=== PATIENT | female | born 1990 | race Caucasian/White ===

== ENCOUNTER 2021-04-07 16:04 | Outpatient (CLI) | payer OTHER ==
[2021-04-07 16:16] LABS: BILIRUBIN,URINE NEGATIVE (NEGATIVE); GLUCOSE, URINE (UA) NEGATIVE (NEGATIVE); KETONES,URINE (UA) NEGATIVE (NEGATIVE); LEUKOCYTE ESTERASE, URINE TRACE (NEGATIVE); NITRITE,URINE NEGATIVE (NEGATIVE); OCCULT BLOOD,URINE NEGATIVE (NEGATIVE); PH,URINE 6.5 PH (5.0-7.5); PROTEIN,URINE NEGATIVE (NEGATIVE); UROBILINOGEN,URINE 0.2 (NORMAL) E.U./dL (NORMAL)
[2021-04-07 17:11] LABS: CLARITY,URINE HAZY (CLEAR)
[2021-04-07 17:54] LABS: BACTERIA,URINE Few /HPF (None Seen); RBC,URINE 0-5 /HPF (0-5); SQUAMOUS EPITHELIAL CELL,UR FEW Squamous (<= Few); WBC,URINE 0-3 /HPF (0-5)
== END 2021-04-07 16:05 | disposition home or self-care (01) ==
LOC: LAB 16:04
PROVIDERS: ATTEND Nurse Practitioner Obstetrics & Gynecology
DX: Z34.80 Encounter for supervision of other normal pregnancy, unspecified trimester (principal); Z36.89 Encounter for other specified antenatal screening
CPT/HCPCS: 81001; 87086

== ENCOUNTER 2021-04-12 10:24 | Outpatient (CLI) | payer OTHER ==
[2021-04-12 10:50] LABS: BASOPHILS % (AUTO) 0.4 %; EOSINOPHILS % (AUTO) 0.3 %; HCT - HEMATOCRIT 34.8 % (37.0-47.0); HGB - HEMOGLOBIN 11.8 g/dL (12.0-16.0); LYMPHOCYTES # (AUTO) 1.7 10^3/uL (1.5-3.5); LYMPHOCYTES % (AUTO) 24.7 %; MEAN CORPUSCULAR HEMOGLOBIN 29.1 pg (27.0-31.0); MEAN CORPUSCULAR HGB CONC 33.9 g/dL (32.0-36.0); MEAN CORPUSCULAR VOLUME 85.9 fL (81.0-99.0); MEAN PLATELET VOLUME 8.9 fL (7.9-10.8); MONOCYTES # (AUTO) 0.5 10^3/uL (0.0-1.0); MONOCYTES % (AUTO) 7.1 %; NEUTROPHILS # (AUTO) 4.7 10^3/uL (1.5-6.6); NEUTROPHILS % (AUTO) 67.4 %; PLT - PLATELET COUNT 293 10^3/uL (130-450); RED BLOOD COUNT 4.05 10^6/uL (4.20-5.40); RED CELL DISTRIBUTION WIDTH 12.4 % (12.0-15.0); WHITE BLOOD COUNT 6.9 x10^3/uL (4.8-10.8)
[2021-04-13 11:02] LABS: HEPATITIS C ANTIBODY NON-REACTIVE (NON-REACTIVE)
[2021-04-13 11:07] LABS: HEPATITIS B SURFACE ANTIGEN NON-REACTIVE (NON-REACTIVE)
[2021-04-13 11:51] LABS: HIV AG/AB 4TH GEN NON-REACTIVE (NON-REACTIVE)
== END 2021-04-12 10:25 | disposition home or self-care (01) ==
LOC: LAB 10:24
PROVIDERS: ATTEND Nurse Practitioner Obstetrics & Gynecology
DX: Z34.80 Encounter for supervision of other normal pregnancy, unspecified trimester (principal); Z36.89 Encounter for other specified antenatal screening
CPT/HCPCS: 36415; 82306; 85025; 86592; 86762; 86787; 86803; 86850; 86900; 86901; 87340; 87389

== ENCOUNTER 2021-04-13 09:59 | Outpatient (CLI) | payer OTHER ==
[2021-04-13 10:21] LABS: BILIRUBIN,URINE NEGATIVE (NEGATIVE); GLUCOSE, URINE (UA) NEGATIVE (NEGATIVE); KETONES,URINE (UA) NEGATIVE (NEGATIVE); LEUKOCYTE ESTERASE, URINE TRACE (NEGATIVE); NITRITE,URINE NEGATIVE (NEGATIVE); OCCULT BLOOD,URINE NEGATIVE (NEGATIVE); PH,URINE 6.5 PH (5.0-7.5); PROTEIN,URINE NEGATIVE (NEGATIVE); UROBILINOGEN,URINE 0.2 (NORMAL) E.U./dL (NORMAL)
[2021-04-13 10:23] LABS: CLARITY,URINE CLEAR (CLEAR)
[2021-04-13 10:56] LABS: BACTERIA,URINE Few /HPF (None Seen); RBC,URINE 0-5 /HPF (0-5); SQUAMOUS EPITHELIAL CELL,UR FEW Squamous (<= Few); WBC,URINE 0-3 /HPF (0-5)
[2021-04-13 20:42] LABS: BACTERIAL VAGINOSIS DNA NEGATIVE (NEGATIVE); CANDIDA GLABRATA DNA NEGATIVE (NEGATIVE); CANDIDA GROUP DNA POSITIVE (NEGATIVE); CANDIDA KRUSEI DNA NEGATIVE (NEGATIVE); TRICHOMONAS VAGINALIS DNA NEGATIVE (NEGATIVE)
== END 2021-04-13 10:00 | disposition home or self-care (01) ==
LOC: LAB.R 09:59
PROVIDERS: ATTEND Nurse Practitioner Obstetrics & Gynecology
DX: R82.998 Other abnormal findings in urine (principal)
CPT/HCPCS: 81001; 87086; 87661; 87801

== ENCOUNTER 2021-04-24 09:26 | Outpatient (CLI) | payer OTHER ==
--- NOTE | 2021-04-24 10:28 | Ultrasound Report ---
PROCEDURE: OB First Trimester INDICATIONS: POSITIVE TEST, DATING OUTSIDE/PRIOR DATING DATA: Last menstrual period (LMP): 02/12/2021. LMP-based estimated date of delivery (DORIS): 11/19/2021. First dating scan (date and location): 04/24/2021. Estimated date of delivery (DORIS) from first dating scan: 11/22/2021. The below data below was generated using the ultrasound derived DORIS of 11/22/2021 TECHNIQUE: Real-time scanning was performed of the fetus and maternal pelvic organs, with image documentation. COMPARISON: None. FINDINGS: Embryo: Gestational sac in the uterine fundus measuring approximately 4.2 cm, corresponding to a ges tational age of 9 weeks 5 days. Within the gestational sac there is a fetus measuring 2.8 cm, corresp onding to gestational age of 9 weeks 5 days. Yolk sac noted. heart rate detected at 176 bpm. Measurement variability in dating: +/- 4 weeks by LMP, +/- 7 days by mean sac diameter (use before 6 weeks gestation if crown-rump length not able to be measured), +/- 5 days by crown-rump length (6-12 weeks gestation). Maternal organs: Ovaries both normal in appearance. IMPRESSION: Single live intrauterine gestation with ultrasound estimated gestational age of 9 weeks 5 days. Reviewed by: Bairon Villanueva MD on 04/24/2021 10:26 AM PST Approved by: Bairon Villanueva MD on 04/24/2021 10:26 AM PST Station ID: [id number]
== END 2021-04-24 09:27 | disposition home or self-care (01) ==
LOC: DI 09:26
PROVIDERS: ATTEND Nurse Practitioner Obstetrics & Gynecology
DX: Z34.81 Encounter for supervision of other normal pregnancy, first trimester (principal); Z3A.09 9 weeks gestation of pregnancy

== ENCOUNTER 2021-05-10 08:00 | Outpatient (CLI) | payer OTHER ==
[2021-05-10 23:59] LABS: CHLAMYDIA TRACHOMATIS DNA NEGATIVE (NEGATIVE); NEISSERIA GONORRHOEAE DNA NEGATIVE (NEGATIVE); TRICHOMONAS VAGINALIS DNA NEGATIVE (NEGATIVE)
== END 2021-05-10 23:59 | disposition home or self-care (01) ==
LOC: LAB.WC 08:00
PROVIDERS: ATTEND Nurse Practitioner Obstetrics & Gynecology
DX: Z11.3 Encounter for screening for infections with a predominantly sexual mode of transmission (principal)
CPT/HCPCS: 87491; 87591; 87661

== ENCOUNTER 2021-05-12 09:20 | Outpatient (CLI) | payer OTHER ==
[2021-05-12 13:21] LABS: ESTIMATED AVERAGE GLUCOSE 97 mg/dL (70-100)
== END 2021-05-12 09:21 | disposition home or self-care (01) ==
LOC: LAB 09:20
PROVIDERS: ATTEND Nurse Practitioner Obstetrics & Gynecology
DX: Z34.80 Encounter for supervision of other normal pregnancy, unspecified trimester (principal); Z36.89 Encounter for other specified antenatal screening
CPT/HCPCS: 36415; 82950; 83036

== ENCOUNTER 2021-05-19 09:34 | Outpatient (CLI) | payer OTHER ==
[2021-05-23 12:16] LABS: CIGARETTE SMOKER? NOT GIVEN; DONOR AGE: EGG RETRIEVAL NOT GIVEN; DONOR EGG NOT GIVEN; HX OF NEURAL TUBE DEFECTS NOT GIVEN; INSULIN DEPEND DIABETIC N; MATERNAL WEIGHT 217 lbs; NUMBER OF FETUSES 1; PREV PREGNANCY DOWN SYND NOT GIVEN
== END 2021-05-19 09:35 | disposition home or self-care (01) ==
LOC: LAB.N 09:34
PROVIDERS: ATTEND Nurse Practitioner Obstetrics & Gynecology
DX: Z36.8A Encounter for antenatal screening for other genetic defects (principal)
CPT/HCPCS: 87491; 87591; 87661

== ENCOUNTER 2021-06-04 09:17 | Outpatient (CLI) | payer OTHER | END 2021-06-04 09:18 | disposition home or self-care (01) | LOC: RT 09:17 | PROVIDERS: ATTEND Family Medicine | DX: R06.00 Dyspnea, unspecified (principal); Z86.16 Personal history of COVID-19 | CPT/HCPCS: 94010 ==

== ENCOUNTER 2021-06-09 10:41 | Outpatient (CLI) | payer OTHER ==
[2021-06-09 19:10] LABS: THYROID STIMULATING HORMONE 1.25 uIU/mL (0.34-5.60)
[2021-06-09 19:16] LABS: FERRITIN 22.2 ng/mL (11.0-306.8)
[2021-06-09 19:20] LABS: % IRON SATURATION 17 % (20-50); IRON 79 ug/dL (28-170); TOTAL IRON BINDING CAPACITY 469 ug/dL (250-450); TRANSFERRIN 335 mg/dL (192-382)
== END 2021-06-09 10:42 | disposition home or self-care (01) ==
LOC: LAB.N 10:41
PROVIDERS: ATTEND Obstetrics & Gynecology
DX: O99.019 Anemia complicating pregnancy, unspecified trimester (principal); O99.891 Other specified diseases and conditions complicating pregnancy; R68.89 Other general symptoms and signs
CPT/HCPCS: 36415; 82105; 82677; 82728; 83540; 84163; 84443; 84466; 84702; 86336

== ENCOUNTER 2021-07-03 09:18 | Outpatient (CLI) | payer OTHER ==
--- NOTE | 2021-07-03 13:21 | Ultrasound Report ---
PROCEDURE: OB Detailed Eval INDICATIONS: SUPERVISION OF OUTSIDE/PRIOR DATING DATA: Last menstrual period (LMP): February 12, 2021. LMP-based estimated date of delivery (DORIS): November 19, 2021. First dating scan (date ): April 24, 2021. Estimated date of delivery (DORIS) from first dating scan: November 22, 2021. TECHNIQUE: Real-time scanning was performed of the fetus, with image documentation and biometric measurements. COMPARISON: April 24, 2021 FINDINGS: General: A single living intrauterine gestation is present. Presentation: Vertex Placenta: Placental position is anterior, without previa. Amniotic fluid index: 12.3 cm, appropriate for gestational age. heart rate: 138 beats per minute. Maternal cervical canal: 4.6 cm long; normal length is 2.5 cm or more. biometrics: Biparietal diameter: 4.35 cm Head circumference: 17.1 cm Abdominal circumference: 14.5 cm Femur length: 3.1 cm Estimated gestational age from initial scan: 19 weeks, 5 days. Composite gestational age from present scan: 19 weeks, 4 days Estimated weight and percentile: 307.3 g +/- 45 g; 44 percentile Measurement variability in biometric dating: +/- 10 days from 12-20 weeks gestation, +/- 2 weeks from 20-30 weeks gestation, +/- 3 weeks at 30 weeks gestation or later. Anatomic survey: Neuro: Ventricles are normal at less than 10 mm. Cisterna magna is normal at 3-11 mm. Cerebellum i s normal in size and morphology. Nuchal skin fold: Normal at less than 6 mm between 14 and 20 weeks gestational age. Face: Not well seen. Spine: Not well seen. Heart: 4-chambered heart is present, with normal ventricular outflow tracts. Diaphragm: Diaphragm is intact. Stomach: Left-sided stomach is present. Kidneys: No hydronephrosis. Normal is less than 5 mm in 2nd trimester, less than 7 mm in 3rd trimester. Cord: 3 vessel cord has orthotopic insertion. Bladder: Normal in size. Extremities: All 4 extremities are visualized. IMPRESSION: 1. Live single intrauterine gestation as detailed above. Reviewed by: Huang Olmos MD on 07/03/2021 1:20 PM PDT Approved by: Huang Olmos MD on 07/03/2021 1:20 PM PDT Station ID: [id number]
== END 2021-07-03 09:19 | disposition home or self-care (01) ==
LOC: DI 09:18
PROVIDERS: ATTEND Obstetrics & Gynecology
DX: Z34.82 Encounter for supervision of other normal pregnancy, second trimester (principal); Z36.89 Encounter for other specified antenatal screening

== ENCOUNTER 2021-08-15 11:01 | Outpatient (CLI) | payer OTHER ==
--- NOTE | 2021-08-15 17:13 | Ultrasound Report ---
PROCEDURE: OB F/U or Repeat INDICATIONS: UTERINE SIZE DATE DISCREPANCY OUTSIDE/PRIOR DATING DATA: Last menstrual period (LMP): 02/12/2021. LMP-based estimated date of delivery (DORIS): 11/19/2021. First dating scan (date and location): 04/24/2021. Estimated date of delivery (DORIS) from first dating scan: 11/22/2021. The below data below was generated using the ultrasound DORIS of 3122 TECHNIQUE: Real-time scanning was performed of the fetus, with image documentation and biometric measurements. COMPARISON: OB ultrasound 04/24/2021, 07/03/2021 FINDINGS: General: A single living intrauterine gestation is present. Presentation: Free Placenta: Placental position is anterior, without previa. Amniotic fluid index: 15 cm, within normal limits for gestational age. Largest pocket 5.5 cm heart rate: 152 beats per minute. Maternal cervical canal: 4.3 cm long; normal length is 2.5 cm or more. biometrics: Biparietal diameter: 6.6 cm x 6 weeks 4 days Head circumference: 24.5 cm 26 weeks 4 days Abdominal circumference: 21.8 cm 26 weeks 2 days Femur length: 4.4 cm 24 weeks 3 days Estimated gestational age from initial scan: 25 weeks 6 days Composite gestational age from present scan: 26 weeks 0 days Estimated weight and percentile: 838 g 31st percentile Measurement variability in biometric dating: +/- 10 days from 12-20 weeks gestation, +/- 2 weeks from 20-30 weeks gestation, +/- 3 weeks at 30 weeks gestation or more. Other: Face, profile and spine are within normal limits. IMPRESSION: 1. Single live intrauterine with ultrasound gestational age today of 26 weeks 0 days. 2. Face, profile and spine are within normal limits. Reviewed by: April Benjamin MD on 08/15/2021 5:12 PM PDT Approved by: April Benjamin MD on 08/15/2021 5:12 PM PDT Station ID: [id number]
== END 2021-08-15 11:02 | disposition home or self-care (01) ==
LOC: DI 11:01
PROVIDERS: ATTEND Obstetrics & Gynecology
DX: O26.842 Uterine size-date discrepancy, second trimester (principal); Z3A.26 26 weeks gestation of pregnancy

== ENCOUNTER 2021-09-12 08:32 | Outpatient (CLI) | payer OTHER ==
[2021-09-12 09:10] LABS: GTT GLUCOSE,FASTING 97 mg/dL (70-100)
== END 2021-09-12 08:33 | disposition home or self-care (01) ==
LOC: LAB 08:32
PROVIDERS: ATTEND Obstetrics & Gynecology
DX: R73.02 Impaired glucose tolerance (oral) (principal)
CPT/HCPCS: 36415; 82951; 82952

== ENCOUNTER 2021-10-02 15:30 | Outpatient (CLI) | payer OTHER ==
--- NOTE | 2021-10-03 15:18 | Ultrasound Report ---
PROCEDURE: OB F/U or Repeat INDICATIONS: Uterine size date discrepancy OUTSIDE/PRIOR DATING DATA: Last menstrual period (LMP): 02/12/2021. LMP-based estimated date of delivery (DORIS): 11/19/2021. First dating scan (date and location): 04/24/2021. Estimated date of delivery (DORIS) from first dating scan: 11/22/2021. The below data below was generated using the ultrasound DORIS of 11/22/2021 TECHNIQUE: Real-time scanning was performed of the fetus, with image documentation and biometric measurements. Endovaginal scanning: Not performed COMPARISON: 08/15/2021 FINDINGS: General: A single living intrauterine gestation is present. Presentation: Vertex Placenta: Placental position is anterior without previa. Amniotic fluid index: 16.2 cm, normal for gestational age. Largest pocket: 6.2 cm. heart rate: 140 beats per minute. Maternal cervical canal: 5.7 cm long; normal length is 2.5 cm or more. biometrics: Biparietal diameter: 8.4 cm Head circumference: 32.2 cm Abdominal circumference: 30.2 cm Femur length: 6.1 cm Estimated gestational age from initial scan: 32 weeks 5 days. Composite gestational age from present scan: 34 weeks 1 day. Estimated weight and percentile: 2257 g, 72nd percentile Measurement variability in biometric dating: +/- 10 days from 12-20 weeks gestation, +/- 2 weeks from 20-30 weeks gestation, +/- 3 weeks at 30 weeks gestation or more. Other: Not applicable. IMPRESSION: Single living intrauterine gestation with normal AWILDA and normal weight. Estimated gestational age on the basis of biometry is 34 weeks 1 day. Reviewed by: Bairon Villanueva MD on 10/03/2021 3:17 PM PDT Approved by: Bairon Villanueva MD on 10/03/2021 3:17 PM PDT Station ID: [id number]
== END 2021-10-02 15:31 | disposition home or self-care (01) ==
LOC: DI 15:30
PROVIDERS: ATTEND Nurse Practitioner
DX: O26.843 Uterine size-date discrepancy, third trimester (principal); Z3A.34 34 weeks gestation of pregnancy

== ENCOUNTER 2021-10-25 08:00 | Outpatient (CLI) | payer OTHER | END 2021-10-25 23:59 | disposition home or self-care (01) | LOC: LAB.N 08:00 | PROVIDERS: ATTEND Obstetrics & Gynecology | DX: Z36.85 Encounter for antenatal screening for Streptococcus B (principal) | CPT/HCPCS: 87797 ==

== ENCOUNTER 2021-11-16 07:41 | Inpatient (IN) | payer OTHER ==
--- NOTE | 2021-11-16 08:52 | HISTORY & PHYSICAL EXAMINATION ---
Admit History - : 4 Parity: 3 Care: positive: [facility] Complications This : positive: Gestational diabetes Smoking Status: Never smoker - Mother's Labs Mother's Blood Type: positive: O Mother's RH: positive: Positive GBS: positive: Group B Step Negative Rubella Status: positive: Equivocal - Other Maternal History Other Maternal History: HPI: 31-year-old -0-0-3 at 39 weeks 4 days gestation presenting for induction of labor. She has good movement. Denies loss of fluid. No LYNN/BV or RUQP. No vaginal bleeding. Denies nausea and vomiting. Denies urinary urgency or dysuria. All other symptoms reviewed and were negative except per HPI. Course A1 GDM: Can continue to monitor at this time. EFW 8/12 Cephalic presentation, normal AWILDA, 15, 3109 g, 53rd percentile COVID in : Resolved. No residual symptoms. 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 Going to pelvic floor PT, but less beneficial. Sense of prolapse: Said it happened later in last time. Declined exam. Discussed that prolapse often worsens with increase in age, , vaginal deliveries, all that increased since last . Encouraged to bring up at pelvic floor PT. Congenital eye issues (coloboma): declines MFM referral LMP 02/12/2021 DORIS by LMP 11/19/2021 Initial U/S @ 9.5wks c/w LMP dating. (DORIS by U/S 11/22/2021) FINAL DORIS 11/22/2021 04/07/2021 @ 7w5d- 219.4lbs BMI 37.8 O pos/Rubella- equivocal VZV:immune Genetic testing: Serum integrated screen part 1 completed -Part II - Negative FAS- 307.3g 44%ile, 3VC, placenta anterior w/o previa, AWILDA wnl EFW 5 24,022: 838 g, 31st percentile. AWILDA 15 cm. Glucola: Early glucose 104 , 1HR glucola 153, 3HR fast 97, 1hr 173, 2hr 164, 3hr 72 GDM Influenza: declines COVID-19 vaccine: declines; Had Covid 03/2021. TDAP- given 08/29/21 GBS @ 36.3- Negative HSV: denies in self and partner Breast pump Rx given 08/16/21 MOD: Anticipate ; Plan for 39 week induction.IOL 11/16/21 0730. pp contraception: Partner vasectomy, POP at 6 weeks until partner vasectomy pap:per pt 2019-Normal PMH Urinary incontinence mixed Congenital coloboma PSH Unremarkable OB History -0-0-3 1. 09/10/2008, 41 weeks, , female, 8 pounds 8 ounces 2. 12/16/2014, 40 weeks, male, 10 pounds 3 ounces 3. 03/14/2017, 39 weeks, , male, 10 pounds 11 ounces SH Denies tobacco, alcohol, drug Family History 's Father: Diabetes, coronary disease, [place] Mother: Psychiatric disease Paternal grandmother: Diabetes, stroke Paternal grandfather: Diabetes Maternal grandmother: Psychiatric care Maternal grandfather: Psychiatric care Allergies No known drug allergies Medications vitamins Physical exam: General: Alert, oriented, no acute distress Head: Normal cephalic atraumatic Eyes: PERRLA, extraocular motions intact. Respiratory: Normal rate of respiration. No accessory muscle use, normal respiratory effort. Cardiovascular: Regular rate and rhythm Abdomen: Gravid, nontender, nondistended Extremities: Normal range of motion Neuro: Oriented x3. Normal movements Psych: Appropriate mood and affect. Normal judgment and insight SVE: 05/14/-3 FHT: 150 beats per baseline, moderate variability, accelerations present, no decelerations. Octavia: Rare Plan 31-year-old -0-0-3 at 39 weeks 4 days gestation admitted for induction of labor secondary to gestational diabetes 1. Induction of labor -We will start with oxytocin for labor induction -Anticipate AROM 2. 39 weeks gestation 3. A1 gestational diabetes -Every 4 hour glucose checks. Meds/Allgy - Allergies Allergies/Adverse Reactions: Allergies Allergy/AdvReac Type Severity Reaction Status Date / Time No Known Drug Allergies Allergy Verified 09/19/21 10:58
[2021-11-16] MEDS ORDERED: fentaNYL 100 MCG/2 ML VIAL IVP PRN (09:09)
[2021-11-16] MEDS ORDERED: miSOPROStoL 200 MCG TABLET PR PRN (09:09)
[2021-11-16] MEDS ORDERED: NIFEdipine 10 MG CAPSULE PO PRN (09:09)
[2021-11-16] MEDS ORDERED: miSOPROStoL 200 MCG TABLET BC PRN (09:09)
[2021-11-16] MEDS ORDERED: OXYTOCIN 10 UNIT/ML VIAL IM PRN (09:09)
[2021-11-16] MEDS ORDERED: METHYLERGONOVINE 0.2 MG/ML VIAL IM PRN (09:09)
[2021-11-16] MEDS ORDERED: TERBUTALINE 1 MG/ML VIAL SUBQ PRN (09:09)
[2021-11-16] MEDS ORDERED: CARBOPROST TROMETHAMINE 250 MCG/ML AMP IM PRN (09:09)
[2021-11-16] MEDS ORDERED: TRANEXAMIC ACID IN NACL 1,000 MG/100 ML BAG IV PRN (09:09)
[2021-11-16] MEDS ORDERED: hydrALAZINE INJ 20 MG/ML VIAL IVP PRN ×2 (09:09)
[2021-11-16] MEDS ORDERED: lidocaine 1% 20 ML MDV ID PRN (09:09)
[2021-11-16] MEDS ORDERED: LABETALOL 20 MG/4 ML SYRINGE IVP PRN ×3 (09:09)
[2021-11-16] MEDS ORDERED: SODIUM CHLORIDE FLUSH 0.9% 10 ML SYRINGE IVP PRN (09:09)
[2021-11-16 09:15] LABS: BASOPHILS % (AUTO) 0.3 %; EOSINOPHILS % (AUTO) 0.5 %; HCT - HEMATOCRIT 35.9 % (37.0-47.0); HGB - HEMOGLOBIN 12.2 g/dL (12.0-16.0); LYMPHOCYTES # (AUTO) 1.4 10^3/uL (1.5-3.5); LYMPHOCYTES % (AUTO) 21.2 %; MEAN CORPUSCULAR VOLUME 88.4 fL (81.0-99.0); MONOCYTES # (AUTO) 0.7 10^3/uL (0.0-1.0); MONOCYTES % (AUTO) 9.8 %; NEUTROPHILS # (AUTO) 4.5 10^3/uL (1.5-6.6); NEUTROPHILS % (AUTO) 67.6 %; PLT - PLATELET COUNT 157 10^3/uL (130-450); RED BLOOD COUNT 4.06 10^6/uL (4.20-5.40); RED CELL DISTRIBUTION WIDTH 13.6 % (12.0-15.0); WHITE BLOOD COUNT 6.6 x10^3/uL (4.8-10.8)
[2021-11-16] MEDS: LACTATED RINGERS 1,000 ML IV SCH ×4 (09:45→23:43)
[2021-11-16] MEDS ORDERED: LACTATED RINGERS 1,000 ML ONE (09:49)
[2021-11-16] MEDS: OXYTOCIN/SODIUM CHLORIDE 500 ML IV PRN (09:55)
[2021-11-16] MEDS ORDERED: ROPIVACAINE 0.2% 200 MG/100 ML BAG EP ONE (19:57)
[2021-11-16] MEDS ORDERED: ePHEDrine 50 MG/ML VIAL IVP PRN (20:16)
[2021-11-16] MEDS ORDERED: diphenhydrAMINE INJ 50 MG/ML VIAL IVP PRN (20:16)
[2021-11-16] MEDS ORDERED: NALBUPHINE 10 MG/ML AMP IVP PRN (20:16)
[2021-11-16] MEDS ORDERED: METOCLOPRAMIDE 10 MG/2 ML VIAL IVP PRN (20:16)
[2021-11-16] MEDS ORDERED: ONDANSETRON 4 MG/2 ML VIAL IVP PRN (20:16)
[2021-11-16] MEDS ORDERED: ROPIVACAINE 0.2% 200 MG/100 ML BAG EP PRN (20:16)
[2021-11-16] MEDS ORDERED: NALOXONE 0.4 MG/ML VIAL IVP PRN (20:16)
--- NOTE | 2021-11-16 20:16 | ANESTHESIA ---
Pre-Anesthesia VS, & Labs - Diagnosis labor pain - Procedure labor epidural Vital Signs: Temp Pulse Resp BP Pulse Ox 37.0 C 110 H 16 118/73 11/16/21 08:38 11/16/21 08:38 11/16/21 08:38 11/16/21 08:38 Height: 5 ft 4 in Weight (kg): 107.501 kg Body Mass Index: 40.6 BMI Classification: Morbidly Obese - NPO Other (pt ate dinner around 1730) - Is Patient ?: Yes - Lab Results Current Lab Results: Laboratory Tests 11/16/21 09:04: Blood Type O POSITIVE, Antibody Screen NEGATIVE 11/16/21 09:04: WBC 6.6, RBC 4.06 L, Hgb 12.2, Hct 35.9 L, MCV 88.4, MCH 30.0, MCHC 34.0, RDW 13.6, Plt Count 157, MPV 10.0, Neut # (Auto) 4.5, Lymph # (Auto) 1.4 L, [place] # (Auto) 0.7, Eos # (Auto) 0.0, Baso # (Auto) 0.0, Absolute Nucleated RBC 0.00, Nucleated RBC % 0.0 Fish Bones: 11/16/21 09:04 Home Medications and Allergies Active Medications Carboprost Tromethamine (Carboprost Tromethamine 250 Mcg/Ml Amp) 250 mcg IM .ONCE PRN PRN Reason: Hemorrhage Fentanyl (Fentanyl 100 Mcg/2 Ml Vial) 50 mcg IVP Q1H PRN PRN Reason: Severe Pain (score 7-10) Hydralazine HCl (Hydralazine Inj 20 Mg/Ml Vial) 5 - 10 mg IVP Q20M PRN; Protocol PRN Reason: SBP> or= 160 OR DBP> or= 110 Hydralazine HCl (Hydralazine Inj 20 Mg/Ml Vial) 10 mg IVP .ONCE PRN; Protocol PRN Reason: SBP> or= 160 OR DBP> or= 110 Oxytocin/Sodium Chloride (Pitocin/Sodium Chloride) 500 mls @ 999 mls/hr IV PRN PRN; Protocol PRN Reason: POST- HEMORR PREVENTION Last Admin: 11/16/21 09:55 Dose: 1 milliunit/min, 1 mls/hr Tranexamic Acid (Tranexamic 1,000 Mg/100ml-Nacl) 1,000 mg in 100 mls @ 600 mls/hr IV Q30M PRN PRN Reason: EBL >1200mL and within 3hr Lactated Ringer's (Lr) 1,000 mls @ 125 mls/hr IV .Q8H [facility] Last Admin: 11/16/21 19:52 Dose: 125 mls/hr Labetalol HCl (Labetalol 20 Mg/4 Ml Syringe) 20 - 80 mg IVP Q10M PRN; Protocol PRN Reason: SBP> or= 160 OR DBP> or= 110 Labetalol HCl (Labetalol 20 Mg/4 Ml Syringe) 20 mg IVP .ONCE PRN; Protocol PRN Reason: SBP> or= 160 OR DBP> or= 110 Labetalol HCl (Labetalol 20 Mg/4 Ml Syringe) 20 - 40 mg IVP Q10M PRN; Protocol PRN Reason: SBP> or= 160 OR DBP> or= 110 Lidocaine HCl (Lidocaine 1% 20 Ml Mdv) 20 ml ID .ONCE PRN PRN Reason: PERINEAL REPAIR Stop: 11/19/21 09:09 Methylergonovine Maleate (Methylergonovine 0.2 Mg/Ml Vial) 0.2 mg IM .ONCE PRN PRN Reason: Hemorrhage Misoprostol (Misoprostol 200 Mcg Tablet) 600 mcg BC .ONCE PRN PRN Reason: Hemorrhage Misoprostol (Misoprostol 200 Mcg Tablet) 800 mcg [place] .ONCE PRN PRN Reason: Hemorrhage Nifedipine (Nifedipine 10 Mg Capsule) 10 - 20 mg PO Q20M PRN; Protocol PRN Reason: SBP> or= 160 OR DBP> or= 110 Oxytocin (Oxytocin 10 Unit/Ml Vial) 10 unit IM .ONCE PRN PRN Reason: Step One if no IV access. Sodium Chloride (Sodium Chloride Flush 0.9% 10 Ml Syringe) 10 ml IVP PRN PRN PRN Reason: NEEDED PER PROVIDER ORDERS Sodium Chloride (Sodium Chloride Flush 0.9% 10 Ml Syringe) 10 ml IVP Q8H [facility] Terbutaline Sulfate (Terbutaline 1 Mg/Ml Vial) 0.25 mg SUBQ .ONCE PRN PRN Reason: Tachystole Allergies/Adverse Reactions: Allergies Allergy/AdvReac Type Severity Reaction Status Date / Time No Known Drug Allergies Allergy Verified 09/19/21 10:58 Anes History & Medical History - Anesthetic History Anesthesia Complications: reports: No previous complications Family history of Anesthesia Complications: Denies Family history of Malignant Hyperthermia: Denies - Medical History Cardiovascular: reports: None Pulmonary: reports: None Urinary: reports: None Neuro: reports: None Smoking Status: Never smoker - Obstetrical History : 4 Parity: 3 Complications: reports: Gestational diabetes Exam General: Alert, Oriented x3, Cooperative Dental: WNL Mouth Openin Fingerbreadth Neck Mobility: Normal Mallampati classification: III Thyromental Distance: less than 4 cm Respiratory: Lungs clear Cardiovascular: Regular rate Plan Anesthesia Type: Epidural Consent for Procedure(s) Verified and Reviewed: Yes Code Status: Attempt Resuscitation ASA classification: 2-Mild systemic disease Is this case an emergency?: No
--- NOTE | 2021-11-16 20:18 | ANESTHESIA PROCEDURE NOTE ---
Anesthesia Epidural Template - Patient Report Patient Reports: positive: Pain controlled - Plan Plan: positive: Continue current management
--- NOTE | 2021-11-16 20:52 | PROVIDER PROGRESS NOTE ---
Labor Progress Note - Uterine Monitoring Uterine Monitoring Mode: positive: External toco Contraction Frequency (min/apart): 2-3 Contraction Intensity: positive: Moderate Uterine Resting Tone: positive: Soft - Monitoring Monitor Mode: positive: External ultrasound Heart Rate Variability: positive: Moderate (6-25 bmp) Accelerations: positive: Present, 15x15 Decelerations: positive: None Strip Review: positive: Category I - Vaginal Exam Dilation (in cm): 5 Effacement (%): 20 Station: -3 Cervical Position: Posterior - Labor Progress Note Labor Progress Note/Additional Text: Patient had some hypotension after epidural. Decreased rate. Currently 5 cm, but head is very ballotable. We will recheck and hope for increased engagement. Continue oxytocin at this time.
--- NOTE | 2021-11-16 23:18 | PROVIDER PROGRESS NOTE ---
Labor Progress Note - Uterine Monitoring Uterine Monitoring Mode: positive: External toco Contraction Frequency (min/apart): 2-3 Contraction Intensity: positive: Moderate Uterine Resting Tone: positive: Soft - Monitoring Monitor Mode: positive: External ultrasound Heart Rate Baseline: 145 Heart Rate Variability: positive: Moderate (6-25 bmp) Accelerations: positive: Present, 15x15 Decelerations: positive: None Strip Review: positive: Category I - Vaginal Exam Dilation (in cm): 6 Effacement (%): 50 Station: -3 - Labor Progress Note Labor Progress Note/Additional Text: Patient had spontaneous rupture of membranes and was checked and 6 cm. Still 6 cm after one hour. Maternal tachycardia intermittent. No fevers or tachycardia. Will continue oxytocin at this time.
[2021-11-17] MEDS ORDERED: ACETAMINOPHEN 500 MG TABLET PO PRN ×2 (00:57→01:01)
[2021-11-17] MEDS: SODIUM CHLORIDE FLUSH 0.9% 10 ML SYRINGE IVP SCH ×3 (01:16→07:28)
--- NOTE | 2021-11-17 01:25 | PROVIDER PROGRESS NOTE ---
Labor Progress Note - Uterine Monitoring Uterine Monitoring Mode: positive: External toco Contraction Frequency (min/apart): 3-4 Contraction Intensity: positive: Moderate Uterine Resting Tone: positive: Soft - Monitoring Monitor Mode: positive: External ultrasound Heart Rate Baseline: 155 Heart Rate Variability: positive: Moderate (6-25 bmp) Accelerations: positive: Present, 15x15 Decelerations: positive: None Strip Review: positive: Category I - Labor Progress Note Labor Progress Note/Additional Text: Patient remains unchanged since spontaneous rupture of membranes occurred. Patient's tachycardia resolved, but did develop some tachycardia. Afebrile. Very short time since rupture. Patient did receive 1 g Tylenol. Patient is having regular contractions, but no cervical change. Oxytocin was discontinued and will be restarted after 30 minutes.
--- NOTE | 2021-11-17 06:23 | PROVIDER PROGRESS NOTE ---
Labor Progress Note - Uterine Monitoring Uterine Monitoring Mode: positive: External toco Contraction Frequency (min/apart): 3-4 Contraction Intensity: positive: Moderate Uterine Resting Tone: positive: Soft - Monitoring Monitor Mode: positive: External ultrasound Heart Rate Baseline: 160 Heart Rate Variability: positive: Moderate (6-25 bmp) Accelerations: positive: Present, 15x15 Decelerations: positive: None Strip Review: positive: Category I - Vaginal Exam Dilation (in cm): 6 Effacement (%): 50 Station: -3 - Labor Progress Note Labor Progress Note/Additional Text: Patient remains essentially unchanged. Understandably, she is frustrated by this. Place an IUPC and FSE. Periods of tachycardia that resolved and occasional variable deceleration. Category 1 overall.. We will start D5LR as we assess her contraction adequacy. Fluid has intermittent intermittently blood-tinged with occasional clotted blood versus light meconium. We did review the risks, benefits and alternatives were discussed including but not limited to infection, bleeding that may require blood products or hysterect levy for life saving measures, injury to surrounding organs including but not limited to bowel, bladder, ureters, tubes and ovaries and/or the baby. Should injury occur it could require longer/additional surgery to repair. All questions posed by the patient and her partner were answered. Discussed that if fetus shows signs of distress or if she remains unchanged, we will have to entertain the idea of a section. Patient and partner understand they want to avoid this, but appear willing if necessary.
[2021-11-17] MEDS ORDERED: DEXTROSE 5%-LACTATED RINGERS 1,000 ML IV SCH (07:00)
[2021-11-17] MEDS: OXYTOCIN/SODIUM CHLORIDE 500 ML IV PRN (08:40)
--- NOTE | 2021-11-17 08:42 | DELIVERY NOTE ---
Delivery Note - Labor Labor: positive: Induced by oxytocin - Infant Delivery Method Delivery Method: positive: Spontaneous vaginal delivery - Presentation Presentation: positive: ROP - right occiput posterior - Nuchal Cord Nuchal Cord: positive: None (Shoulder cord and waist cord) - Amniotic Fluid Description Amniotic Fluid Description: positive: Light meconium - Episiotomy Type Episiotomy Type: positive: None - Laceration Laceration: positive: 1st degree (hemostatic) - Delivery Outcome Delivery Outcome: positive: Livebirth - [place]: positive: Placed in direct skin contact with mother sex: positive: Female - Cord Cord: positive: 3 vessels - Placenta Placenta: positive: Intact - Estimated Blood Loss Estimated Blood Loss (in cc): 650 - Delivery Comments (Free Text/Narrative) Delivery Comments (Free Text/Narrative): Preoperative Diagnoses 39 weeks gestation Induction of labor A1 gestational diabetes Postoperative Diagnoses Same Delivered History: Patient is a 31-year-old -0-0-3 admitted at 39 weeks gestation for induction of labor. She was 2 cm dilated on admission, and had oxytocin started. She had a normal progression during the day, but stalled at 6 cm as head was not well engaged and we could not safely rupture her membranes. She later had spontaneous rupture of membrane, and made minimal progress. Oxytocin was increased. After epidural, she began having some intermittent maternal and tachycardia. She did receive ephedrine for hypotension after the epidural. She was afebrile throughout. She had intermittent variable decelerations. She eventually had internal pressure catheter and scalp electrode placed and oxytocin was further titrated until patient felt increasing pressure and is found to be complete and ready to push. Delivery Summary: Patient was placed in the dorsal lithotomy position. Upon maternal pushing the head was delivered atraumatically followed by the anterior shoulder, posterior shoulder, then the remainder of the 's body. A female was delivered with APGARS of 9 at 1 minute and 9 at 5 minutes. The infant was placed on its mother's chest . After the cord finished pulsating, the umbilical cord was clamped times two and cut. Prior to the placenta delivery, she had a large gush of blood, so oxytocin was bolused. The placenta delivered intact with three vessel cord. Placenta was not sent to pathology. Uterine massage was performed until uterus was deemed firm. Upon inspection of the perineum, a small first-degree midline laceration was noted but was hemostatic and not repaired another large gush of blood occurred despite uterine massage, so the patient received 1 dose of 200 mcg of Methergine IM. Uterus again massaged and found to be firm. Needle and sponge counts were correct. Patient was stable and allowed to recover in L&D room. Infant was stable and remained in room with mother. weight is pending at this time.
[2021-11-17] MEDS ORDERED: SIMETHICONE CHEW 80 MG TABLET PO PRN (10:29)
[2021-11-17] MEDS: IBUPROFEN 600 MG TABLET PO SCH ×3 (10:54→23:59)
[2021-11-17] MEDS: ACETAMINOPHEN 500 MG TABLET PO SCH ×2 (10:55→18:50)
[2021-11-17] MEDS ORDERED: LACTATED RINGERS 1,000 ML IV SCH (11:00)
[2021-11-17] MEDS: oxyCODONE 5 MG TABLET PO PRN ×2 (12:44→21:34)
[2021-11-17] MEDS: DOCUSATE SODIUM 100 MG CAPSULE PO PRN (20:11)
[2021-11-18] MEDS: SODIUM CHLORIDE FLUSH 0.9% 10 ML SYRINGE IVP SCH ×2 (00:50→00:52)
[2021-11-18] MEDS: oxyCODONE 5 MG TABLET PO PRN (01:41)
[2021-11-18] MEDS: ACETAMINOPHEN 500 MG TABLET PO SCH ×2 (03:55→12:51)
[2021-11-18] MEDS: IBUPROFEN 600 MG TABLET PO SCH ×2 (06:48→12:51)
[2021-11-18 08:00] VITALS: BP 126/76
[2021-11-18] MEDS: DOCUSATE SODIUM 100 MG CAPSULE PO PRN (09:23)
--- NOTE | 2021-11-18 10:01 | DISCHARGE SUMMARY ---
Discharge Summary Admit Date: 11/16/21 Discharge Date: 11/18/21 Discharging Provider: Eddie Yeung MD Code Status: Attempt Resuscitation Condition at Discharge: Good Discharge Disposition: 01 Home, Self Care - DIAGNOSES Admission Diagnoses: 39 weeks gestation A1 gestational diabetes Induction of labor Discharge Diagnoses with Status of Each Condition: 39 weeks gestation DEXA labor A1 gestational diabetes, managed with diet and exercise Status post spontaneous vaginal delivery - HPI History of Present Illness: Subjective Patient reports she is doing well. Lochia appropriate. Denies heavy bleeding. Ambulating. Pelvic and abdominal pain well-controlled. Tolerating oral intake. Diet: Regular. Voiding without difficulty. Passing flatus. Denies BM. Patient is bonding with baby in room Breast feeding going well. Denies feeling lightheaded, dizzy or excessively fatigued. Objective General: Alert, oriented, no apparent distress. Cardiovascular: Regular rate. Regular rhythm. Lungs: No increased work of breathing. Abdomen: Uterus firm. Below umbilicus. No guarding or rebound. - HOSPITAL COURSE Hospital Course: Patient is a 31-year-old G4, P3 who was admitted at 39 weeks gestation for induction of labor secondary to A1 gestational diabetes. She received oxytocin and amniotomy for induction. Glucose was well controlled throughout labor and delivery including her fasting . Spontaneous vaginal delivery was uneventful, and she was discharged on day 1. - ALLERGIES Allergies/Adverse Reactions: Allergies Allergy/AdvReac Type Severity Reaction Status Date / Time No Known Drug Allergies Allergy Verified 09/19/21 10:58 - MEDICATIONS Home Medications: Ambulatory Orders Medication Instructions Recorded Confirmed Acetaminophen [Acetaminophen Extra 1,000 mg PO Q8H PRN #60 tablet 11/18/21 Strength] Docusate Sodium 100Mg Capsule 100 - 200 mg PO BID PRN #60 cap 11/18/21 [Colace 100Mg Capsule] Ibuprofen [Motrin] 600 mg PO Q6H PRN #30 tab 11/18/21 oxyCODONE [Roxicodone] 2.5 - 5 mg PO Q4H PRN #5 tablet 11/18/21 - LABS Result Diagrams: 11/16/21 09:04 - FOLLOW UP Follow Up: In 1 week with Eddie Yeung MD at [facility] - TIME SPENT Time Spent in Discharge (Minutes): 30
--- NOTE | 2021-11-18 10:01 | Discharge Plan ---
Discharge Plan Problem Reviewed?: Yes Disposition: Home, Self Care Condition: Good Diet: Regular Activity Restrictions: Additional Comments Shower Restrictions: No Driving Restrictions: No (If on opioid medications) Instruction Topics: Vaginal After No Smoking: If you smoke, Please STOP! Call for help. Follow-up with: Eddie Yeung MD [Provider Admit Priv/Credential] -
--- NOTE | 2021-11-18 13:48 | Labor Flowsheet ---
Labor Flowsheet Datetime Report Generated by CPN: 11/18/2021 13:48 Datetime: 11/18/2021 07:45 VITAL SIGNS NBP Sys/Joann/Mean (mmHg): 126 : 76 : 85 Pulse: 97 SpO2 (%): 100 Datetime: 11/17/2021 16:32 Respirations: 16 Temperature (C): 36.7 Temperature Route: Oral Datetime: 11/17/2021 12:15 Stage of : Datetime: 11/17/2021 08:24 Medication Comments: methergine Datetime: 11/17/2021 08:20 MEDICATIONS Pitocin (milliunits): Increased to @ 999 Datetime: 11/17/2021 08:14 Comments: unable to determine due to maternal pushing Datetime: 11/17/2021 08:10 LaborFlag: Labor Datetime: 11/17/2021 08:09 STAGE 2 Pushing: Coached on Pushing Pushing Position: Pushing with Contractions; Pushing Lithotomy Pushing Progress: Pushing Effectively with Contractions Datetime: 11/17/2021 08:00 Contraction Comments: IUPC removed by provider ASSESSMENT A Monitor Mode: Internal Scalp Electrode FHR Baseline Rate : 150 FHR Baseline Changes: No Baseline Change Variability: Moderate 6-25 bpm Accelerations: None Decelerations: Variable Category: Category II Datetime: 11/17/2021 07:54 UTERINE ACTIVITY Monitor Mode: Internal Frequency (min): 1-2 Quality: Strong Duration (sec): 60-90 Pattern: Normal: <= 5 Contractions in 10 Minutes Resting Tone (Palpate): Relaxed Resting Tone IUP (mmHg): 15 Intensity IUP (mmHg): 40-70 [place] Units (mmHg): 155 Datetime: 11/17/2021 07:53 Communication Comments: villalba removed and iupc removed by Dr. Yeung Datetime: 11/17/2021 07:48 VAGINAL EXAM Dilatation (cm): 10.0 Effacement (%): 100 Station: 0 Exam by: Dr. Yeung Patient Position/Activity: Semi-Fowlers Datetime: 11/17/2021 07:23 COMMUNICATION Communication: RN at Bedside Datetime: 11/17/2021 07:15 Pitocin Checklist: At Least 1 Acceleration of 15 bpm x 15 Seconds in 30 Minutes or Adequate Variabi lity; No More than 1 Late Deceleration Occurred in Past 30 Minutes; No More than 2 Variable Decelerat ions > 60 Seconds in Duration and decreasing >60 bpm in 30 minutes; No More than 5 Uterine Contractio ns in 10 Minutes for any 20 Minute Interval; Uterus Palpates Soft between Contractions PATIENT CARE Oxygen Method: Room Air Datetime: 11/17/2021 06:30 Actions for Decelerations: Side to Side Datetime: 11/17/2021 05:30 Monitor Interventions for UA: [place] Adjusted Datetime: 11/17/2021 05:10 Cervix, Consistency: Soft Cervix, Position: Posterior Datetime: 11/17/2021 02:24 Patient Care Comments: CBG=[id number] Datetime: 11/17/2021 00:29 Provider Reviewed Strip: Yes Datetime: 11/17/2021 00:00 Monitor Interventions for FHR: Ultrasound Adjusted Datetime: 11/16/2021 23:23 Magnesium/Antihypertensives: Ephedrine IV (mg) @ 10 Datetime: 11/16/2021 22:07 Provider Notified (Name): Dr Gutierrez, project mgr Notification Reason: Status Update; Status; Labor Status; Membrane Status; Other Datetime: 11/16/2021 22:01 Vaginal Exam Comments: Thick Meconium Datetime: 11/16/2021 22:00 Membrane Status: Ruptured Membranes Rupture Method: Spontaneous Amniotic Fluid Color: Light Meconium Amniotic Fluid Amount: Scant Amniotic Fluid Odor: None Datetime: 11/16/2021 21:58 ANESTHESIA Anesthesia Comments: Epidural turned off by RN pending [employer]ER's arrival to unit to decrease infusion rate/adjust admn of epidural due to tachycardia Datetime: 11/16/2021 21:41 I/O Interventions: Ice Chips Given Datetime: 11/16/2021 19:01 PAIN Pain Scale: 7 Pain Presence: Intermittent Pain Type: Pressure Pain Location: Abdomen Datetime: 11/16/2021 18:14 Pain Relief Measures: Comfort Measures
== END 2021-11-18 13:40 | disposition home or self-care (01) | DRG 807 ==
LOC: WFO 07:41 → FBP 07:48 → WFO 09:08 → FBP 09:09
PROVIDERS: ADMIT Obstetrics & Gynecology; ATTEND Obstetrics & Gynecology
PROC: 3E033VJ Introduction of Other Hormone into Peripheral Vein, Percutaneous Approach (ICD-10-PCS; 2021-11-16)
PROC: 4A1H74Z Monitoring of Products of Conception, Cardiac Electrical Activity, Via Natural or Artificial Opening (ICD-10-PCS; 2021-11-16)
PROC: 10E0XZZ Delivery of Products of Conception, External Approach (ICD-10-PCS; principal; 2021-11-17)
DX: O70.0 First degree perineal laceration during delivery (principal); Z37.0 Single live birth; O24.420 Gestational diabetes mellitus in childbirth, diet controlled; Z3A.39 39 weeks gestation of pregnancy; Z86.16 Personal history of COVID-19; O76 Abnormality in fetal heart rate and rhythm complicating labor and delivery; O26.53 Maternal hypotension syndrome, third trimester; O69.81X0 Labor and delivery complicated by cord around neck, without compression, not applicable or unspecified
CPT/HCPCS: 85025; 86850; 86900; 86901; A9270; J2210; J7120